=== PATIENT | female | born 1990 | race Caucasian/White ===

== ENCOUNTER 2020-06-14 16:23 | Emergency (ER) | payer SELFPAY ==
[2020-06-14 16:55] VITALS: BP 127/82
[2020-06-14] MEDS ORDERED: IBUPROFEN 800 MG TABLET PO ONE (17:19)
--- NOTE | 2020-06-14 17:21 | ER Document Report ---
ED Medical Screen (RME) - General Chief Complaint: Leg Pain Stated Complaint: LEG PAIN Time Seen by Provider: 06/14/20 17:12 Primary Care Provider: JANETH BROTHERS NP [Primary Care Provider] - Follow up as needed Mode of Arrival: Wheelchair Information source: Patient Notes: Patient presents complaining of bilateral lower extremity pain for the past week. Patient denies any injury or fever. Patient denies any abdominal pain or back pain. Patient denies any urinary symptoms. I have greeted and performed a rapid initial assessment of this patient. A comprehensive ED assessment and evaluation of the patient, analysis of test results and completion of the medical decision making process will be conducted by additional ED providers. - Related Data Allergies/Adverse Reactions: No Known Allergies Allergy (Unverified 06/14/20 17:10) Physical Exam - Vital signs Vitals: Temp Pulse Resp BP Pulse Ox 99.2 F 84 16 127/82 H 97 06/14/20 16:54 06/14/20 16:54 06/14/20 16:54 06/14/20 16:54 06/14/20 16:54 - Back Back: No: Nontender, Vertebra tenderness - Extremities General lower extremity: Normal inspection, Tender - Bilateral lower extremity tenderness, Normal ROM, Normal strength, Normal temperature, Normal weight bearing. No: Edema Course - Vital Signs Vital signs: Temp Pulse Resp BP Pulse Ox 99.2 F 84 16 127/82 H 97 06/14/20 16:54 06/14/20 16:54 06/14/20 16:54 06/14/20 16:54 06/14/20 16:54 Doctor's Discharge - Discharge Referrals: JANETH BROTHERS NP [Primary Care Provider] - Follow up as needed
[2020-06-14 17:46] LABS: ABSOLUTE BASOPHILS # (AUTO) 0.2 10^3/uL (0.0-0.2); ABSOLUTE EOSINOPHILS # (AUTO) 0.7 10^3/uL (0.0-0.6); ABSOLUTE LYMPHOCYTES (AUTO) 4.2 10^3/uL (0.5-4.7); ABSOLUTE MONOCYTES (AUTO) 0.7 10^3/uL (0.1-1.4); ABSOLUTE NEUT (AUTO) 6.8 10^3/uL (1.7-8.2); BASOPHILS % (AUTO) 1.3 % (0-2); EOSINOPHILS % (AUTO) 5.7 % (0-6); HEMATOCRIT 42.7 % (36.0-47.0); HEMOGLOBIN 14.4 g/dL (12.0-15.5); LYMPHOCYTES % (AUTO) 33.2 % (13-45); MEAN CORPUSCULAR HEMOGLOBIN 29.1 pg (27.0-33.4); MEAN CORPUSCULAR HGB CONC 33.8 g/dL (32.0-36.0); MEAN CORPUSCULAR VOLUME 86 fl (80-97); MONOCYTES % (AUTO) 5.5 % (3-13); PLATELET COUNT 346 10^3/uL (150-450); RED BLOOD COUNT 4.95 10^6/uL (3.72-5.28); RED CELL DISTRIBUTION WIDTH 14.2 % (11.5-14.0); SEGMENTED NEUTROPHILS % (AUTO) 54.3 % (42-78); TOTAL CELLS COUNTED % (AUTO) 100 %; WHITE BLOOD COUNT 12.6 10^3/uL (4.0-10.5)
[2020-06-14 18:08] LABS: ALBUMIN 4.3 g/dL (3.5-5.0); ALKALINE PHOSPHATASE 106 U/L (38-126); ANION GAP 12 (5-19); ASPARTATE AMINO TRANSFERASE 26 U/L (14-36); BILIRUBIN,DIRECT 0.3 mg/dL (0.0-0.4); BILIRUBIN,TOTAL 0.3 mg/dL (0.2-1.3); BLOOD UREA NITROGEN 11 mg/dL (7-20); CALCIUM 9.6 mg/dL (8.4-10.2); CARBON DIOXIDE 21 mmol/L (22-30); CHLORIDE 106 mmol/L (98-107); CREATINE KINASE 58 U/L (30-135); GLUCOSE 101 mg/dL (75-110); POTASSIUM 4.2 mmol/L (3.6-5.0); TOTAL PROTEIN 7.7 g/dL (6.3-8.2)
== END 2020-06-14 21:20 | disposition left against medical advice (07) ==
LOC: ER 16:23
DX: M79.604 Pain in right leg (principal); M79.605 Pain in left leg; Z53.20 Procedure and treatment not carried out because of patient's decision for unspecified reasons
CPT/HCPCS: 36415; 80053; 82550; 84703; 85025; 99281